=== PATIENT | female | born 2000 | race Caucasian/White ===

== ENCOUNTER 2021-04-24 00:15 | Inpatient (IN) | payer OTHER ==
[~2021-04-24] VITALS: Ht 157.5 cm; Wt 80.7 kg
[2021-04-24 01:28] LABS: HEMOGLOBIN 13.2 gm/dl (12.3-15.3); RED BLOOD COUNT 4.65 M/UL (4.00-5.10); WHITE BLOOD COUNT 13.5 K/UL (4.5-11.0)
[2021-04-24 01:46] LABS: BUN/CREATININE RATIO 11 (0-10)
--- NOTE | 2021-04-24 14:10 | NUR ---
DR MOSHER CALLED PT IN BATHROOM VOMITING GREEN BILE HOLDING HER BELLY CRYING SAYING SHE CANT WAIT TILL TOMORROW FOR SURGERY. NEW ORDERS NOTED AND MEDS GIVEN. PT IS RESTING WITH NO DISTRESS NOTED AT THIS TIME.
[2021-04-25] MEDS ORDERED: HYDROCODON-ACE1 EAC6 PO (14:48)
== END 2021-04-25 18:30 | disposition home or self-care (01) | DRG 769 ==
LOC: ER1 00:15 → M/S 08:19 → CDU 08:19 → M/S 12:17
PROVIDERS: Physician Assistant; ADMIT Surgery
PROC: 0FT44ZZ Resection of Gallbladder, Percutaneous Endoscopic Approach (ICD-10-PCS; principal; 2021-04-25 13:00)
DX: O99.63 Diseases of the digestive system complicating the puerperium (principal); K81.0 Acute cholecystitis; Z20.822 Contact with and (suspected) exposure to COVID-19; Z83.3 Family history of diabetes mellitus; Z82.49 Family history of ischemic heart disease and other diseases of the circulatory system; Z98.890 Other specified postprocedural states
CPT/HCPCS: 80053; 82150; 83690; 83735; 85025; 96374; 96375; 96376; 99285; C1729; J1100; J1170; J1885; J2001; J2250; J2270; J2405; J2543; J2550; J2704; J2710; J3010; J7030; J7120; Q9967; U0002